=== PATIENT | female | born 1980 | race Two or more races ===

== ENCOUNTER → 2018-07-18 | Outpatient (CLI) | payer OTHER ==
[2018-07-18 12:58] LABS: BASOPHILS # (AUTO) 0.03 x10^3/uL (0-0.1); BASOPHILS % (AUTO) 1 % (0-1); EOSINOPHILS # (AUTO) 0.02 x10^3/uL (0-0.4); EOSINOPHILS % (AUTO) 0 % (1-7); LYMPHOCYTES # (AUTO) 2.85 x10^3/uL (1-3.4); LYMPHOCYTES % (AUTO) 46 % (22-44); MD NO; MEAN CORPUSCULAR HEMOGLOBIN 31.1 pg (27.0-34.8); MEAN CORPUSCULAR HGB CONC 34.2 g/dL (32.4-35.8); MEAN CORPUSCULAR VOLUME 90.9 fL (80-100); MEAN PLATELET VOLUME 7.3 fL (7.4-10.4); MONOCYTES # (AUTO) 0.23 x10^3/uL (0.2-0.8); MONOCYTES % (AUTO) 4 % (2-9); NEUTROPHILS # (AUTO) 3.03 x10^3/uL (1.8-6.8); NEUTROPHILS % (AUTO) 49 % (42-75); PLATELET COUNT 389 x10^3/uL (130-400); RED BLOOD COUNT 4.93 x10^6/uL (3.82-5.3); RED CELL DISTRIBUTION WIDTH 12.3 % (9.6-15.2)
[2018-07-18 13:03] LABS: MICROSCOPIC AUTO
[2018-07-18 13:08] LABS: CULTURE INDICATED? NO
== END | disposition home or self-care (01) ==
LOC: LAB 12:31
PROVIDERS: ATTEND Obstetrics & Gynecology
DX: Z34.01 Encounter for supervision of normal first pregnancy, first trimester (principal); E84.19 Cystic fibrosis with other intestinal manifestations
CPT/HCPCS: 36415; 81001; 81220; 85025; 86592; 86762; 86850; 86900; 87340; 87806; G0475

== ENCOUNTER → 2018-08-19 | Outpatient (CLI) | payer OTHER ==
[~2018-08-19] MED LIST: OMNIPAQUE 350 MG/ML, 150 ML BOTTLE ONE
== END | disposition home or self-care (01) ==
LOC: RAD 09:40
PROVIDERS: ATTEND Nurse Practitioner Family
DX: M47.816 Spondylosis without myelopathy or radiculopathy, lumbar region (principal); N28.1 Cyst of kidney, acquired; N39.0 Urinary tract infection, site not specified
CPT/HCPCS: 74178; Q9967

== ENCOUNTER → 2019-01-28 | Outpatient (CLI) | payer OTHER ==
[2019-01-28 15:22] LABS: MICROSCOPIC NOT IND
== END | disposition home or self-care (01) ==
LOC: LAB 14:20
PROVIDERS: ATTEND Obstetrics & Gynecology
DX: N97.0 Female infertility associated with anovulation (principal)
CPT/HCPCS: 36415; 81003; 84144

== ENCOUNTER 2019-09-20 10:17 | Day surgery (SDC) | payer OTHER ==
[~2019-09-20] VITALS: Ht 165.1 cm; Wt 62.0 kg
[~2019-09-20 10:17] MED LIST changes: +DOCU-131 PO; +IBUP200T49 PO; -OMNIPAQUE 350 MG/ML, 150 ML BOTTLE ONE; +OXYC-302 PO
[2019-09-20 10:58] LABS: BASOPHILS # (AUTO) 0.02 x10^3/uL (0-0.1); BASOPHILS % (AUTO) 0 % (0-1); EOSINOPHILS # (AUTO) 0.01 x10^3/uL (0-0.4); EOSINOPHILS % (AUTO) 0 % (1-7); LYMPHOCYTES # (AUTO) 1.83 x10^3/uL (1-3.4); LYMPHOCYTES % (AUTO) 32 % (22-44); MD NO; MEAN CORPUSCULAR HEMOGLOBIN 31.6 pg (27.0-34.8); MEAN CORPUSCULAR HGB CONC 34.3 g/dL (32.4-35.8); MEAN CORPUSCULAR VOLUME 92.2 fL (80-100); MEAN PLATELET VOLUME 6.8 fL (7.4-10.4); MONOCYTES # (AUTO) 0.31 x10^3/uL (0.2-0.8); MONOCYTES % (AUTO) 5 % (2-9); NEUTROPHILS # (AUTO) 3.55 x10^3/uL (1.8-6.8); NEUTROPHILS % (AUTO) 62 % (42-75); PLATELET COUNT 297 x10^3/uL (130-400); RED BLOOD COUNT 4.26 x10^6/uL (3.82-5.3); RED CELL DISTRIBUTION WIDTH 12.8 % (9.6-15.2)
[2019-09-20] MEDS ORDERED: PREN1TAB60 PO (11:14)
[2019-09-20 11:15] VITALS: BP 104/66
[2019-09-20] MEDS ORDERED: FENTANYL PF 100 MCG/2ML ONE ×2 (11:19→13:47)
[2019-09-20] MEDS ORDERED: MIDAZOLAM 1 MG/ML, 2ML ONE (11:20)
[2019-09-20] MEDS ORDERED: CEFAZOLIN 1,000 MG ONE (11:24)
[2019-09-20] MEDS ORDERED: ROCURONIUM 10MG/ML,5ML ONE (11:24)
[2019-09-20] MEDS ORDERED: PROPOFOL 10 MG/ML, 20ML ONE (11:24)
[2019-09-20] MEDS ORDERED: LIDOCAINE-MPF 2% ,5ML ONE (11:24)
[2019-09-20] MEDS: LACTATED RINGERS 1,000 ML IV SCH ×2 (11:56→11:57)
[2019-09-20] MEDS ORDERED: BUPIVACAINE/PF-EPI 0.25% 1:200K ONE (12:15)
[2019-09-20] MEDS ORDERED: MISOPROSTOL 200 MCG TABLET ONE (12:15)
[2019-09-20] MEDS ORDERED: OXYTOCIN 10 UNITS/ML, 1ML ONE (12:15)
[2019-09-20] MEDS ORDERED: METHYLERGONOVINE 0.2 MG/ML IM ONE (12:16)
[2019-09-20] MEDS ORDERED: SILVER NITRATE STICK TP ONE (12:16)
[2019-09-20] MEDS ORDERED: KETOROLAC 30 MG/1 ML ONE (12:28)
[2019-09-20] MEDS ORDERED: DEXAMETHASONE 4 MG/ML, 1ML ONE (12:28)
[2019-09-20] MEDS ORDERED: OXYcodone 5 MG/5 ML ORAL.SOL UDC PO PRN (13:00)
[2019-09-20] MEDS ORDERED: ACETAMINOPHEN 325 MG TABLET PO PRN (13:00)
[2019-09-20] MEDS ORDERED: MEPERIDINE/PF 25MG/ML,1ML IVPush PRN (13:00)
[2019-09-20] MEDS ORDERED: FENTANYL PF 100 MCG/2ML IV PRN (13:00)
[2019-09-20] MEDS ORDERED: HYDROmorphone 2 MG/ML, 1ML IVPush PRN (13:00)
[2019-09-20] MEDS ORDERED: PROMETHAZINE 25 MG/ML, 1ML IV PRN (13:00)
[2019-09-20] MEDS ORDERED: OXYcodone 5 MG/5 ML ORAL.SOL UDC ONE (13:48)
== END 2019-09-20 14:55 | disposition home or self-care (01) ==
LOC: OUT 10:17
PROVIDERS: ATTEND Obstetrics & Gynecology
DX: O02.1 Missed abortion (principal); O09.521 Supervision of elderly multigravida, first trimester; Z3A.01 Less than 8 weeks gestation of pregnancy; Z87.440 Personal history of urinary (tract) infections; Z67.90 Unspecified blood type, Rh positive
CPT/HCPCS: 36415; 59820; 85025; 86850; 86900; 88305; J0690; J1100; J1885; J2250; J2590; J2704; J3010; J7120; J2210

== ENCOUNTER → 2019-10-19 | Outpatient (CLI) | payer OTHER ==
[~2019-10-19] MED LIST changes: +PREN1TAB60 PO
== END | disposition home or self-care (01) ==
LOC: LAB 16:47
PROVIDERS: ATTEND Obstetrics & Gynecology Reproductive Endocrinology
DX: Z13.79 Encounter for other screening for genetic and chromosomal anomalies (principal); N83.9 Noninflammatory disorder of ovary, fallopian tube and broad ligament, unspecified; D68.9 Coagulation defect, unspecified
CPT/HCPCS: 36415; 82397; 84146; 84432; 84443; 85613; 85732; 86147; 86148; 86762; 88237; 88264; 88280